=== PATIENT | male | born 1945 | race Caucasian/White ===

== ENCOUNTER 2023-09-13 08:47 | Outpatient (CLI) | payer MEDICARE, SELFPAY ==
--- NOTE | 2023-09-13 09:01 | ECG_ITS ---
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
[2023-09-13 09:30] LABS: Hematocrit 45.7 % (42.0-52.0); Hemoglobin 14.8 g/dL (14.0-18.0); Mean Corpuscular HGB Conc 32.4 g/dl (32-36); Mean Corpuscular Hemoglobin 30.1 pg (26-34); Mean Corpuscular Volume 93.1 fl (80-100); Mean Platelet Volume 9.8 fl (7.4-10.4); Platelet Count Result 199 k/mm3 (150-375); Red Blood Count 4.91 M/mm3 (4.6-6.20); Red Cell Distribution Width 13.6 % (11.5-14.5); White Blood Count 8.5 K/mm3 (4.5-10.0)
[2023-09-13 09:38] LABS: Anion Gap 5 mmol/L (8-16); Blood Urea Nitrogen 20 mg/dL (9-20); Carbon Dioxide 31 mmol/L (22-30); Chloride 101 mmol/L (98-107); Estimated Glomerular Filt Rate > 60; Glucose 154 mg/dL (65-110); Potassium 4.4 mmol/L (3.4-5.0); Sodium 137 mmol/L (137-145)
[2023-09-13 09:44] LABS: Appearance Urine Clear (Clear); Bacteria Urine None Seen /hpf; Bilirubin Urine Negative (Negative); Blood Urine Negative (Negative); Color Urine Yellow (Yellow); Glucose Urine UA Negative (Negative); Ketones Urine Negative (Negative); Leukocyte Esterase Ur 1+ LEU/UL (Negative); Need Manual Microscopic Reviewed; Nitrate Urine Negative (Negative); Non Pathogenic Casts 0-2; Protein Urine Trace mg/dL (Negative); RBC Urine 0-2 /hpf (0-2); Specific Grav Ur 1.018 (1.001-1.035); Squamous Epithelial Cell Urine None seen /hpf (Few); WBC Urine 0-5 /hpf
[2023-09-13 09:45] LABS: Add Urine Microscopic? YES
[2023-09-13 10:11] LABS: Hemoglobin A1C 7.2 % (<5.7)
[2023-09-13 11:23] LABS: INR 0.9; Partial Thromboplastin Time 26.9 SECONDS (22.3-36.8); Prothrombin Time 12.5 Seconds (11.1-14.7)
== END 2023-09-13 08:48 | disposition home or self-care (01) ==
LOC: ANHSURGERY 08:55
PROVIDERS: Visit Provider Neurological Surgery
DX: M48.02 Spinal stenosis, cervical region (principal); Z01.818 Encounter for other preprocedural examination
CPT/HCPCS: 36415; 80048; 81001; 83036; 85027; 85610; 85730; 86850; 86900; 86901; 93005

== ENCOUNTER 2023-09-17 01:25 | Day surgery (SDC) | payer MEDICARE, SELFPAY ==
[2023-09-10 13:33] VITALS: BMI 27.1
--- NOTE | 2023-09-10 13:50 | PC.NURSE ---
PRE-OP INSTRUCTIONS, PLEASE READ CAREFULLY Report to the Outpatient Waiting Room, entrance under the green pavilion located off [facility], at time _0900_ on date _09/17/23_. Planned Procedure Time: _1100_. Time changes happen often and if your time is changed the preop area will call you the afternoon before. - You and your visitor will be asked to self-screen and do not enter if you have any COVID symptoms. - A mask is optional within the hospital at this time. -VISITING HOURS 8AM-8PM Patients may have clear liquids (water, carbonated beverages, clear teas, apple juice) until 3 hours prior to surgery (0800 AM) with a maximum of 20 ounces. - No food from midnight until time of surgery Take the following medications with a SIP of water the morning of surgery: _TYLENOL IF NEEDED_ DO NOT STOP ANY OF YOUR OTHER PRESCRIPTION MEDICATIONS PRIOR TO SURGERY ?EXCEPT THE FOLLOWING Medications to discontinue per DR. VU - _IBUPROFEN OF TODAY, Date to take last dose 09/10/23_ Medications to discontinue per ANESTHESIA - _MULTIVITAMIN 3 DAYS PRIOR TO SURGERY, Date to take last dose 09/13/23_ Please no make-up, nail mongolian, hairspray, perfume, deodorant, or body powder the day of surgery. No jewelry (including any body piercings) or valuables the day of surgery, leave them at home. Please take a shower or bath the night before, or the morning of, surgery with an antibacterial soap. Wear comfortable, loose fitting clothing. - Jewelry must be removed prior to entering the operating room. Rings and piercings that are not removed may be cut off. - The hospital will not accept responsibility for valuables. - Please leave all valuables, including medications, at home the day of surgery. If you are going home after surgery, a licensed refrigerated national truck driver must drive you home. - NO public transportation without another adult if you receive anesthesia. - We recommend that an adult stay with you for 24 hours following discharge. - We also recommend that you do not drive, make important decision, drink alcoholic beverages, or take any drugs that were not prescribed by your health care provider for at least 24 hours after your discharge time. Follow any additional instructions given to you from your surgeon. If you or anyone in your household have experienced Covid symptoms in the past week, please notify your surgeon or the nurse liaison at the phone number below for possible testing. Telephone instructions given to _PT'S SPOUSE_and asked if any additional questions and then verbalized understanding. Patient advised to call surgeon office or pre surgery nurse liaison [phone] if any additional questions.
[2023-09-17] VITALS (21 sets, daily range): BP systolic 128–171; BP diastolic 58–96; PULSE 77–91; RESP 14–24; TEMP 36.1–37.1; O2SAT 91–100
--- NOTE | ~2023-09-17 | XR_ITS ---
XR fluoroscopy no charge Indication: Cervical discectomy TECHNIQUE: Fluoroscopy used during cervical discectomy performed by [Jerrod Jones MD] on 11/1022. 3 seconds of fluoroscopy with 2 fluoroscopic images captured. FINDINGS: Correlate with procedure note. IMPRESSION: Fluoroscopy used during cervical discectomy at C3-4 with anterior fusion.. Please refer t o procedural report for details. Reviewed, dictated and finalized at location A. IMPRESSION: Fluoroscopy used during cervical discectomy at C3-4 with anterior f usion.. Please refer to procedural report for details.
[2023-09-17] MEDS: LACTATED RINGERS 1,000 ML 30 ML IV CONT ×2 (09:52→16:00)
[2023-09-17 09:56] LABS: Glucose Point of Care 150 mg/dl (65-105)
--- NOTE | 2023-09-17 11:18 | WPDANESEPPF ---
Anes - Initial Pre Proc Eval Procedure: Operation Date: 09/17/23 11:00 Proposed Procedures p C3-4 Anterior Cervical Discectomy and Fusion - Jerrod Jones MD Date/Time: 09/17/23 11:18 Surgeon: Jerrod Jones MD Pre Op Diagnosis: cervical and spinal stenosis Patient Data Age: 78 Gender: M Height: 1.83 m Weight: 88.7 kg Last Vital Signs Temp 98.7 F 09/17/23 09:45 Pulse 81 09/17/23 09:45 Resp 16 09/17/23 09:45 BP 133/78 09/17/23 09:45 Pulse Ox 95 09/17/23 09:45 O2 Del Method Room Air 09/17/23 09:45 Allergies Allergy/AdvReac Type Severity Reaction Status Date / Time hydrocodone AdvReac Vomiting Verified 09/17/23 09:01 oxycodone AdvReac Vomiting Verified 09/17/23 09:01 Sulfa (Sulfonamide AdvReac Rash Verified 09/17/23 09:01 Antibiotics) Home Medications Medication Instructions Recorded Confirmed Type atorvastatin 40 mg tablet 40 mg PO DAILY 06/03/23 09/17/23 History chlorthalidone 25 mg tablet 25 mg PO DAILY 06/03/23 09/17/23 History ibuprofen 800 mg tablet 800 mg PO BID 06/03/23 09/17/23 History irbesartan 300 mg tablet 300 mg PO DAILY 06/03/23 09/17/23 History metformin 1,000 mg tablet 1,000 mg PO BID 06/03/23 09/17/23 History Tylenol Ex Str Arthritis Pain 1,000 mg BID 09/10/23 09/17/23 History calcium citrate 200 mg (950 mg) 400 mg PO DAILY 09/10/23 09/17/23 History tablet multivitamin 1 tablet PO DAILY 09/10/23 09/17/23 History Laboratory Tests 09/17/23 09:53 POC Capillary Glucose 150 H mg/dl (65-105) Patient hx anesthesia problems: none Family hx anesthesia problems: none Results Review: All pre-operative results and documents have been reviewed as part of the pre-operative evaluation. [facility] Family History Family History (Updated 06/03/23 @ 14:27 by Leisa Mcbride MA) Father Diabetes mellitus Hypertension Heart problem Mother Hypertension Heart problem Social History Social History (Updated 06/03/23 @ 14:11 by Leisa Mcbride MA) Social History: Lester is somewhat confident in filling out medical forms and has not received any assistance from an organization or program. Smoking status: Never smoker Second hand tobacco smoke exposure: No Alcohol intake: never Substance use: never Substance use type: does not use Lack of Transportation: No Lack of Food: Never True Current Housing: I Have Housing Concerned About Future Housing: No Difficulty Paying Gas/Electric Bills: No Difficulty Paying for Meds: No Currently Unemployed: No Education: High School Diploma/GED Difficulty w/ Childcare or Family Care: No Living arrangements: with family Occupation/Education: retired Gender identity (if verbalized by the patient): Male Sexual Orientation (if Verbalized by the Patient): Straight or Heterosexual Spiritual care concerns: No Agree to blood products: Yes Anes - Eval Final PreProcedure Day of Procedure 09/17/23 11:18 Patient weight: normal Heart: regular rate and rhythm Lungs: clear to auscultation Airway: Mallampati scale class II Neurological: alert and oriented Last oral intake: >/= 8 hours ASA classification: III Emergent: no Anesthetic plan: proceed Anesthesia type and monitoring: general ETT and standard monitoring Results Review: All pre-operative results and documents have been reviewed as part of the pre-operative evaluation. Informed Consent: The patient's anesthetic plan and its attendant risks and benefits were discussed with the patient/family/POA. Questions were solicited and answers provided to the satisfaction of the patient/family/POA.
--- NOTE | 2023-09-17 11:59 | PM.IMHP ---
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 He has not changed appreciably since we last saw him. He does not have specific muscle group weakness or dermatomal numbness. He does not have bowel or bladder difficulty or gait disturbance. Review of Systems Review of Systems: Patient denies shortness of breath, cough, fever, chills, nausea, vomiting, weight loss, weight gain, chest pain, dysuria. He has neck and arm and head pain as above. His review of systems otherwise negative on 12 systems except as noted elsewhere. [facility] Family History Family History (Updated 06/03/23 @ 14:27 by Leisa Mcbride MA) Father Diabetes mellitus Hypertension Heart problem Mother Hypertension Heart problem Social History Social History (Updated 06/03/23 @ 14:11 by Leisa Mcbride MA) Social History: Lester is somewhat confident in filling out medical forms and has not received any assistance from an organization or program. Smoking status: Never smoker Second hand tobacco smoke exposure: No Alcohol intake: never Substance use: never Substance use type: does not use Lack of Transportation: No Lack of Food: Never True Current Housing: I Have Housing Concerned About Future Housing: No Difficulty Paying Gas/Electric Bills: No Difficulty Paying for Meds: No Currently Unemployed: No Education: High School Diploma/GED Difficulty w/ Childcare or Family Care: No Living arrangements: with family Occupation/Education: retired Gender identity (if verbalized by the patient): Male Sexual Orientation (if Verbalized by the Patient): Straight or Heterosexual Spiritual care concerns: No Agree to blood products: Yes Meds Home Medications and Allergies Home Medications Medication Instructions Recorded Confirmed Type atorvastatin 40 mg tablet 40 mg PO DAILY 06/03/23 09/17/23 History chlorthalidone 25 mg tablet 25 mg PO DAILY 06/03/23 09/17/23 History ibuprofen 800 mg tablet 800 mg PO BID 06/03/23 09/17/23 History irbesartan 300 mg tablet 300 mg PO DAILY 06/03/23 09/17/23 History metformin 1,000 mg tablet 1,000 mg PO BID 06/03/23 09/17/23 History Tylenol Ex Str Arthritis Pain 1,000 mg BID 09/10/23 09/17/23 History calcium citrate 200 mg (950 mg) 400 mg PO DAILY 09/10/23 09/17/23 History tablet multivitamin 1 tablet PO DAILY 09/10/23 09/17/23 History Allergies Allergy/AdvReac Type Severity Reaction Status Date / Time hydrocodone AdvReac Vomiting Verified 09/17/23 09:01 oxycodone AdvReac Vomiting Verified 09/17/23 09:01 Sulfa (Sulfonamide AdvReac Rash Verified 09/17/23 09:01 Antibiotics) Vital Signs Vital Signs - 24 hr 09/17/23 09:45 Temperature 98.7 F Pulse Rate 81 Respiratory Rate 16 Blood Pressure 133/78 Pulse Oximetry 95 Oxygen Delivery Room Air Exam Narrative: Strength is 5/5 in all muscle groups of the bilateral upper extremities. Sensation is intact to light touch throughout the upper extremities. Breathing is nonlabored Regular rate and rhythm Assessment and Plan Assessment and plan (1) Foraminal stenosis of cervical region: Code(s): M48.02 - Spinal stenosis, cervical region Status: Acute (2) Cervical spondylosis: Code(s): M47.812 - Spondylosis without myelopathy or radiculopathy, cervical region Status: Acute Plan Lester is an 78-year-old gentleman who presents for C3-4 anterior cervical diskectomy and fusion. I again described to him that operation, its risks, potential benefits, the operative and postoperative course in detail and answered all his questions personally. He indicates understanding and elects to proceed with th
--- NOTE | 2023-09-17 12:01 | WPDHPUPDATE1 ---
History and Physical Update Update Date/Time: 09/17/23 12:01 History and Physical has been reviewed, including an updated exam of the patient. There are NO changes in the patient's condition. Risks, benefits, and alternatives have been discussed and questions answered. Patient agrees to proceed with procedure.
[2023-09-17] MEDS: ceFAZolin 2 GM/D5W 50 ML 2 GM/50 ML BAG IVPB (12:13)
[2023-09-17] MEDS: LIDO 1%/EPINEPHRINE 1:100,000 50 ML VIAL 10 ML INFILTRATE (13:19)
--- NOTE | 2023-09-17 14:00 | W.PM.PROC2 ---
Procedure Note - Detailed Date of Procedure 09/17/23 Pre-op Diagnosis cervical and spinal stenosis Post-op Diagnosis Same Procedure Performed C3-4 complete diskectomy bilateral neural foraminotomy, C3-4 interbody arthrodesis and anterior cervical plating with intervertebral peek interbody device and titanium plate and screws Surgeon Jerrod Jones MD Anesthesia General Description of Procedure Patient was brought to the operating room in the supine position, was sedated, intubated placed under general anesthesia in routine fashion. There of operation on the right side of the neck was examined, marked for incision, prepped and draped in routine sterile fashion. Incision was marked from the midline over the medial aspect of the sternocleidomastoid muscle in curvilinear transverse fashion 3 fingerbreadths above the sternal notch. This area was injected with 0.5% lidocaine with [id number] epinephrine. Intravenous antibiotics given prior to incision. Incision was made with a 10 blade scalpel down to the platysma muscle. The skin was undermined the platysma muscle was divided longitudinally with its fibers using Metzenbaum scissors. A plane was dissected medial to the sternocleidomastoid muscle down to the anterior aspect of the spine using the finger and Metzenbaum scissors. A verifying x-rays obtained to verify the level of operation. The plate below was discovered and uncovered using Bovie cautery. The longus colli muscle was dissected free of the anterior aspect of the spine in a subperiosteal plane using Bovie cautery. A Shadow Line retractor system was placed. Madison pins were placed into the vertebral body above and below and distraction placed over them. The disc space was entered using a 15 blade scalpel cutting along the margin of the bone above and below. Curved curettes and pituitary rongeur were used to remove as much cartilaginous endplate and disc material was possible down to the annulus and ligament posteriorly. Midas-Tuan drill was used to bur down the endplates to bleeding cortical flat surfaces as well as to begin a bony foraminotomy bilaterally. Under microscopy the annulus and ligament were interrupted and 2. Kerrison punch was used to remove annulus, ligament and posterior osteophytes and to complete a bony foraminotomy bilaterally. Disc herniation was discovered on the right at this level. These maneuvers were performed to the nerve with the placed out each foramen to confirm lack of compression. The disc space was sized a 9 mm integral peek interbody device with titanium plate was chosen, filled with local autograft bone and I factor and tamped into the interspace until the plate was flush with the anterior of the spine. A hand drill was used to create a 16 mm hole superiorly and inferiorly diagonally into the endplate. A 16 mm screw by 4 mm screw was then placed into each of these holes. This was tightened hand tightness and the locking mechanism was engaged. A verifying x-rays obtained to verify good position of the instrumentation which was confirmed. The wound was copiously irrigated with bacitracin irrigation all bleeding stopped with bipolar and Bovie cautery and Gelfoam thrombin powder. The wound was then closed in layered fashion with 3-0 Vicryl interrupted sutures in the platysma muscle and dermis. The skin was closed with a running 4-0 Monocryl subcuticular stitch and dressed with Dermabond. The patient was allowed to wake up in the operating room was taken to recovery room in stable condition. There were no immediate complications of this operation. All counts were reported correct in the case. Blood loss was 25 cc. The patient was neurologically at his baseline postoperatively. Estimated Blood Loss 25 IV Fluids 1,000 Complications None Condition Stable Disposition PACU [facility] Billing Surgery - Charge Forward: Surgery Billing
[2023-09-17] MEDS: fentaNYL CITRATE INJ (*CRX) 100 MCG/2 ML VIAL 25 MCG IV PUSH ×6 (14:20→18:27)
[2023-09-17 14:26] LABS: Glucose Point of Care 187 mg/dl (65-105)
[2023-09-17] MEDS: traMADol HCL (*CRX) 50 MG TABLET PO ×3 (15:29→23:15)
--- NOTE | 2023-09-17 16:15 | WPDNEUROSGPN ---
Subjective Date/time seen: 09/17/23 16:15 Interval history: Lester is freshly status post C3-4 anterior cervical diskectomy and fusion. An outpatient recovery he started to develop swelling on the right side of his neck underneath his incision. This has become quite large. While he is not having any breathing difficulty currently this definitely threatens his airway and other functions in his neck including swallowing. I recommended to him that we return to the operating room to open the wound and find what ever is bleeding and stop it. I described to him that operation, its risks, potential benefits, the operative and postoperative course in detail and answered all his questions personally. He indicates understanding and elects to proceed. I do not believe he has a choice. We will likely keep him overnight postoperatively. He currently has a strong voice. Objective Data Vital Signs Vital Signs: Vital Signs - 24 hr 09/17/23 09:45 09/17/23 14:08 09/17/23 14:15 Temperature 98.7 F Pulse Rate 81 86 81 Respiratory Rate 16 24 H 18 Blood Pressure 133/78 161/73 H 147/77 H Pulse Oximetry 95 99 92 Oxygen Delivery Room Air Simple Face Mask Room Air Oxygen Flow Rate 10 09/17/23 14:30 09/17/23 15:00 09/17/23 14:45 Temperature Pulse Rate 79 78 79 Respiratory Rate 16 18 19 Blood Pressure 131/79 157/82 H 128/58 L Pulse Oximetry 96 95 96 Oxygen Delivery Room Air Room Air Room Air Oxygen Flow Rate Intake/Output Intake/Output: Intake & Output 09/14/23 09/15/23 09/16/23 09/17/23 23:59 23:59 23:59 23:59 Intake Total 1850 Balance 1850 Meds/Results Medications: Active Medications Generic Name Dose Route Start Last Admin Trade Name Freq PRN Reason Stop Dose Admin Fentanyl Citrate 25 mcg 09/17/23 11:22 09/17/23 15:47 Fentanyl Citrate Inj (*Crx) 100 Mcg/2 Ml Vial IV PUSH 25 mcg Q2M PRN Administration Pain Lactated Ringer's 1,000 mls @ 30 mls/hr 09/16/23 14:10 09/17/23 15:12 Lr - Lactated Ringers Iv IV CONT 30 mls/hr .Q24H CITLALLI Infusion Lactated Ringer's 1,000 mls @ 30 mls/hr 09/17/23 11:25 Lr - Lactated Ringers Iv IV CONT .Q24H CITLALLI Ondansetron HCl 4 mg 09/17/23 11:22 Ondansetron Inj 4 Mg/2 Ml Vial IV PUSH ONCE PRN Nausea Radiology Results: ITS Impressions Fluoroscopy 09/17/23 15:11 IMPRESSION: Fluoroscopy used during cervical discectomy at C3-4 with anterior fusion.. Please refer to procedural report for details. Labs Labs: Laboratory Results - last 24 hr 09/17/23 09/17/23 09:53 14:24 POC Capillary Glucose 150 H 187 H
--- NOTE | 2023-09-17 16:39 | SUR.PHASEII ---
1618: patient returns to OR for drainage of Neck hematoma with Dr. Jones.
[2023-09-17] MEDS: ceFAZolin SODIUM 1 GM VIAL 2 GM IV PUSH (16:40)
--- NOTE | 2023-09-17 17:21 | P.OP_ITS ---
Procedure Note - Detailed Date of Procedure 09/17/23 Pre-op Diagnosis cervical and spinal stenosis, postop hematoma Post-op Diagnosis Same Procedure Performed Exploration of cervical wound for hematoma Surgeon Jerrod Jones MD Anesthesia General Indications Patient underwent a C3-4 anterior cervical diskectomy and fusion earlier today. He did well in recovery but after being transferred to outpatient recovery before discharge he was noted to have swelling on the right side of his neck underneath it is incision which increased. He had difficulty swallowing but continued to breathe on his own. It was deemed prudent to taken back to the operating room to remove what was likely hematoma that could cause issues with both swallowing and breathing. All this was explained to the patient and he agreed. Description of Procedure Patient was brought to the operating room in the supine position, was sedated, intubated and placed under general anesthesia in routine fashion. The of operation on the right side of the neck was examined, marked for incision, prepped and draped in routine sterile fashion. Incision was marked over the previous incision from the midline over the medial aspect of the sternocleidomastoid muscle in curvilinear transverse fashion. This area was injected with 0.5% lidocaine with [id number] epinephrine. Intravenous antibiotics given prior to incision. Incision was made at the previous incision using a 10 blade scalpel. Sutures were cut using Metzenbaum scissors. Hematoma underneath the skin was removed using suction. The sutures in the platysma muscle were also cut with Henderson scissors. More hematoma was discovered beneath the platysma muscle and this was removed using suction. A handheld Cloward was used to retract the tissues to examine all the way down to the anterior aspect of the spine in the instrumentat ion adjustment placed. All hematoma both solid and liquid was removed. The entire wound was copiously irrigated with bacitracin irrigation. Some bleeding was found medially near the surface just under the platysma muscle. This was coagulated using bipolar cautery. Several times the wound was irrigated and explored using a Kerlix and any bleeding was stopped with bipolar cautery. The wound was observed for more than 10 minutes and irrigated multiple times until clear. A medium Hemovac drain was left before below the platysma muscle and buried after the inferior and right of the incision. The platysma muscle was then closed using 3-0 Vicryl interrupted sutures. The dermis was also closed with 3-0 Vicryl interrupted sutures in the skin was closed with a running 4-0 Monocryl subcuticular stitch and dressed with Dermabond. The patient was allowed to wake up in the operating room was taken to the recovery room in stable condition. There were no immediate complications of this operation. All counts were reported correct in the case. Blood loss was 50 cc. The patient was neurologically at his baseline postoperatively. Estimated Blood Loss 50 IV Fluids 1,000 Complications None Condition Stable Disposition PACU [facility] Billing Surgery - Charge Forward: Surgery Billing
--- NOTE | 2023-09-17 18:54 | ADMGEN ---
This patient, Lester Sigala, was admitted to Medical Room 261-01. Patient/family oriented to hospital policies and general routines including ID bracelet, bed and alarms, visiting hours, pain management, procedures, bathroom and other care routines, personal items, smoking policy, room service/diet, and visiting hours. Information on how to activate the Rapid Response Team has been discussed. Patient/Family are encouraged to report perceived risks to care and to ask questions if they do not understand what they are told or what they should do.
[2023-09-17] MEDS: KCL 20 MEQ/D5/0.45% SOD CHL 1,000 ML 100 ML IV CONT (19:08)
[2023-09-17] MEDS: DOCUSATE SODIUM 100 MG CAPSULE PO (21:12)
[2023-09-17] MEDS: INSULIN ASPART (*BKC) 100 UNITS/ML SUB-Q (21:49)
[2023-09-17 22:58] LABS: Glucose Point of Care 317 mg/dl (65-105)
[2023-09-17] MEDS: ceFAZolin 1 GM/NS 50 ML 1 GM/50 ML BAG IVPB (23:04)
[2023-09-18 01:15] VITALS: BP 142/82; PULSE 76; RESP 20; TEMP 36.6; O2SAT 95
[2023-09-18 05:06] VITALS: BP 152/75; PULSE 81; RESP 18; TEMP 36.3; O2SAT 92
[2023-09-18] MEDS: KCL 20 MEQ/D5/0.45% SOD CHL 1,000 ML 100 ML IV CONT (06:00)
[2023-09-18 08:00] VITALS: PULSE 80; RESP 16; O2SAT 100
--- NOTE | 2023-09-18 09:03 | WPDANESPN ---
Anes - Prog Note Post-Op Date/Time: 09/18/23 09:03 Cardiovascular status: normal Respiratory status: normal Airway patency: baseline Mental status: baseline Post-Op hydration status: normal Vital Signs: Last Vital Signs Temp 97.3 F L 09/18/23 05:06 Pulse 81 09/18/23 05:06 Resp 18 09/18/23 05:06 BP 152/75 H 09/18/23 05:06 Pulse Ox 92 09/18/23 05:06 O2 Del Method Room Air 09/18/23 08:32 O2 Flow Rate 6 09/17/23 17:45 Pain Score (VAS): 0/10 I/O: Intake & Output 09/17/23 09/18/23 09/18/23 23:59 07:59 15:59 Intake Total 1250 1290 Output Total 450 1175 Balance 800 115 09/17/23 09/17/23 09/17/23 09:53 14:24 21:17 POC Capillary Glucose 150 H 187 H 317 H Post-procedural complaints: none Patient Feedback: Patient satisfied with anesthetic care.
[2023-09-18] MEDS: ceFAZolin 1 GM/NS 50 ML 1 GM/50 ML BAG IVPB (09:33)
[2023-09-18] MEDS: DOCUSATE SODIUM 100 MG CAPSULE PO (09:33)
[2023-09-18] MEDS: MULTIVITAMINS THERAPEUTIC TAB (*BKC) 1 TABLET PO (09:33)
[2023-09-18] MEDS: IRBESARTAN 150 MG TABLET 300 MG PO (09:33)
[2023-09-18] MEDS: CHLORTHALIDONE 25 MG TABLET PO (09:34)
[2023-09-18] MEDS: metFORMIN HCL 500 MG TABLET 1000 MG PO (09:34)
[2023-09-18] MEDS: ATORVASTATIN 40 MG TABLET PO (09:34)
[2023-09-18 09:52] VITALS: BP 106/80; PULSE 94; RESP 16; TEMP 36.5; O2SAT 99
[2023-09-18 12:12] LABS: Glucose Point of Care 207 mg/dl (65-105)
[2023-09-18] MEDS: INSULIN ASPART (*BKC) 100 UNITS/ML SUB-Q (12:31)
[2023-09-18 14:30] VITALS: BP 135/71; PULSE 80; RESP 16; TEMP 36.8; O2SAT 100
--- NOTE | 2023-09-18 16:39 | WPDNEUROSGPN ---
Progress Note: A&P Assessment and Plan (1) Status post cervical arthrodesis: Code(s): Z98.1 - Arthrodesis status Status: Acute Plan s/p ACDF with return to OR for hematoma evacuation on 09/18 Plan: -Hemovac drain removed at bedside -Discharge home today -Follow up with Dr. Deleon as scheduled Subjective Date/time seen: 09/18/23 16:39 Interval history: Doing very well today without difficulty with swallowing/breathing. Ambulating in room without difficulty. Denies any significant neck pain or arm/leg symptoms. Would like to go home today Review of Systems Review of Systems: All systems reviewed & are unremarkable except as noted in HPI and below Exam Narrative: AOx4 Full strength in all extremities with exception of baseline left foot drop Sensation intact Incision c/d/i without edema HV drain in place Objective Data Vital Signs Vital Signs: Vital Signs - 24 hr 09/17/23 17:30 09/17/23 17:45 09/17/23 18:00 Temperature 97.2 F L Pulse Rate 82 79 77 Respiratory Rate 19 20 17 Blood Pressure 159/79 H 158/80 H 153/82 H Pulse Oximetry 100 100 94 Oxygen Delivery Simple Face Mask Simple Face Mask Room Air Oxygen Flow Rate 6 6 09/17/23 18:30 09/17/23 18:35 09/17/23 19:01 Temperature 97.9 F 97.9 F Pulse Rate 79 84 83 Respiratory Rate 14 18 18 Blood Pressure 157/79 H 161/82 H 152/81 H Pulse Oximetry 95 91 94 Oxygen Delivery Room Air Oxygen Flow Rate 09/17/23 19:23 09/17/23 19:35 09/17/23 20:05 Temperature 97.4 F L 97.0 F L 97.0 F L Pulse Rate 84 81 81 Respiratory Rate 16 18 18 Blood Pressure 165/85 H 149/78 H 149/78 H Pulse Oximetry 93 94 94 Oxygen Delivery Oxygen Flow Rate 09/17/23 20:35 09/17/23 21:35 09/17/23 20:48 Temperature 97 F L 97 F L Pulse Rate 81 81 Respiratory Rate 18 18 Blood Pressure 149/78 H 149/78 H Pulse Oximetry 94 94 Oxygen Delivery Room Air Oxygen Flow Rate 09/18/23 01:15 09/18/23 05:06 09/18/23 08:32 Temperature 97.9 F 97.3 F L Pulse Rate 76 81 Respiratory Rate 20 18 Blood Pressure 142/82 H 152/75 H Pulse Oximetry 95 92 Oxygen Delivery Room Air Oxygen Flow Rate 09/18/23 09:52 09/18/23 14:30 09/18/23 08:00 Temperature 97.7 F 98.2 F Pulse Rate 94 80 80 Respiratory Rate 16 16 16 Blood Pressure 106/80 135/71 Pulse Oximetry 99 100 100 Oxygen Delivery Room Air Oxygen Flow Rate Intake/Output Intake/Output: Intake & Output 09/15/23 09/16/23 09/17/23 09/18/23 23:59 23:59 23:59 23:59 Intake Total 3100 1980 Output Total 450 1175 Balance 2650 805 Meds/Results Medications: Active Medications Generic Name Dose Route Start Last Admin Trade Name Freq PRN Reason Stop Dose Admin Al Hydrox/Mg Hydrox/Simethicone 20 ml 09/17/23 18:35 Mag Hydrox/Al Hydrox/Simeth 30 Ml Udc PO Q4H PRN Indigestion/Heartburn Atorvastatin Calcium 40 mg 09/18/23 09:00 09/18/23 09:34 Atorvastatin 40 Mg Tablet PO 40 mg DAILY CITLALLI Administration Bisacodyl 10 mg 09/17/23 18:35 Bisacodyl 10 Mg Suppository RECTAL DAILY PRN Constipation Chlorthalidone 25 mg 09/18/23 09:00 09/18/23 09:34 Chlorthalidone 25 Mg Tablet PO 25 mg DAILY CITLALLI Administration Cyclobenzaprine HCl 10 mg 09/17/23 18:35 Cyclobenzaprine Hcl 10 Mg Tablet PO TID PRN Muscle Spasms Dextrose 12.5 gm 09/17/23 21:31 Dextrose 50% 25 Gm/50 Ml Syringe IV PUSH PRN PRN Hypoglycemia Protocol Docusate Sodium 100 mg 09/17/23 21:00 09/18/23 09:33 Docusate Sodium 100 Mg Capsule PO 100 mg Q12HR CITLALLI Administration Glucagon 1 mg 09/17/23 21:31 Glucagon For Inj 1 Mg Vial IM PRN PRN Hypoglycemia Protocol Glucose 15 gm 09/17/23 21:31 Glucose Oral Gel 15 Gm Of Glucse In 37.5 Gm Tube PO PRN PRN Hypoglycemia Protocol Cefazolin Sodium 1 gm in 50 mls @ 100 mls/hr 09/18/23 00:00 09/18/23 09:33 Ancef 1 Gm/Ns 50 Ml IVPB
== END 2023-09-18 17:03 | disposition home or self-care (01) ==
LOC: ANHSURGERY 16:13 → ANH2MED 18:38
PROVIDERS: Visit Provider Neurological Surgery
PROC: (CPT 63030; principal; 2023-09-17 11:00)
DX: M48.02 Spinal stenosis, cervical region (principal); M47.812 Spondylosis without myelopathy or radiculopathy, cervical region; M96.840 Postprocedural hematoma of a musculoskeletal structure following a musculoskeletal system procedure; Z79.84 Long term (current) use of oral hypoglycemic drugs
CPT/HCPCS: 22551; 22853; 37799; 21501; 20936; 82948; 97161; 97165; 99199; A9270; C1713; J0330; J0690; J1100; J1815; J2405; J2704; J3010; J3480; J7120

== ENCOUNTER 2023-10-22 09:45 | Outpatient (CLI) | payer MEDICARE, SELFPAY ==
--- NOTE | ~2023-10-22 | XR_ITS ---
Cervical Spine: AP, lateral, open-mouth views Clinical History: Spinal stenosis Findings: No acute fracture or subluxation identified. There is anterior fusion hardware extending fr om C3 through C6. C2-C3 disc space is preserved. There is mild facet arthropathy in the cervical spin e. Impression: No acute abnormality. Anterior fusion from C3 through C6. Reviewed, dictated and finalized at [facility]. [employer] Impression: No acute abnormality. Anterior fusion from C3 through C6.
== END 2023-10-22 09:46 | disposition home or self-care (01) ==
LOC: ANHIMG 09:52
PROVIDERS: Visit Provider Neurological Surgery
DX: M48.02 Spinal stenosis, cervical region (principal); Z98.1 Arthrodesis status
CPT/HCPCS: 72040